=== PATIENT | female | born 1990 | race Two or more races ===

== ENCOUNTER 2022-02-09 02:07 | Emergency (ER) | payer OTHER ==
[~2022-02-09] VITALS: Ht 180.3 cm; Wt 90.7 kg
[2022-02-09] MEDS ORDERED: SERTRALINE20 MG/1 ML PO (02:24)
== END 2022-02-09 09:09 | disposition home or self-care (01) ==
LOC: ER 02:07
DX: K42.9 Umbilical hernia without obstruction or gangrene (principal); R10.9 Unspecified abdominal pain; I10 Essential (primary) hypertension; N85.2 Hypertrophy of uterus